=== PATIENT | male | born 1965 | race Caucasian/White ===

== ENCOUNTER 2024-08-06 08:32 | Emergency (ER) | payer OTHER ==
[~2024-08-06] VITALS: Ht 172.7 cm; Wt 99.8 kg
[2024-08-06] MEDS ORDERED: PENVK500 PO ×3 (09:59→10:11)
== END 2024-08-06 10:20 | disposition home or self-care (01) ==
LOC: ER 08:32
DX: K04.7 Periapical abscess without sinus (principal)
CPT/HCPCS: 99282

== ENCOUNTER 2024-09-27 16:55 | Emergency (ER) | payer OTHER ==
[~2024-09-27] VITALS: Ht 172.7 cm; Wt 108.9 kg
[~2024-09-27 16:55] MED LIST: PENVK500 PO
[2024-09-27] MEDS ORDERED: Amoxicillin/Clavulanate K 875 MG Tab PO ONE (17:50)
[2024-09-27] MEDS ORDERED: Ketorolac Tromethamine 15mg Vial IM ONE (17:50)
[2024-09-27] MEDS ORDERED: AMOCLA875 PO (17:54)
== END 2024-09-27 18:19 | disposition home or self-care (01) ==
LOC: ER 16:55
DX: K08.89 Other specified disorders of teeth and supporting structures (principal)
CPT/HCPCS: 96372; 99282-25; A9270; J1885

== ENCOUNTER → 2024-10-27 | Outpatient (CLI) | payer OTHER ==
[~2024-10-27] MED LIST changes: +AMOCLA875 PO
[2024-10-27 14:26] LABS: Hemoglobin 15.7 g/dL (13.5-17.5); Mean Corpuscular HGB 29.3 pg (26.0-34.0); Mean Corpuscular HGB Conc 34.9 g/dL (31.5-36.5); Mean Corpuscular Volume 84 fL (80-100); Mean Platelet Volume 9.2 fL (9.1-12.4); Platelet Count 240 K/mm3 (150-400); RDW Coefficient Variation 12.1 % (11.7-14.2); RDW Standard Deviation 36.5 fL (35.1-46.3); Red Blood Cell Count 5.35 M/mm3 (4.30-5.90); White Blood Cell Count 6.08 K/mm3 (4.00-11.30)
[2024-10-27 14:35] LABS: Albumin, Blood 3.9 g/dL (3.4-5.0); Albumin/Globulin Ratio 1.1 (0.8-1.8); Bilirubin, Total 0.4 mg/dL (0.1-1.0); Bun/Creatinine Ratio 13.4 (12.0-20.0); Calcium, Blood 8.9 mg/dL (8.5-10.1); Creatinine, Blood 0.75 mg/dL (0.60-1.20); Globulin, Blood 3.7 g/dL (2.2-4.0); Phosphorus, Blood 3.5 mg/dL (2.5-4.9); Potassium, Blood 3.4 mmol/L (3.5-5.5); Total Protein, Blood 7.6 g/dL (6.4-8.2)
[2024-10-27 14:59] LABS: BASOPHILS ABSOLUTE MAN 0.06 K/mm3 (0.00-0.23); BASOPHILS PERCENT MAN 1 % (0-2); EOSINOPHILS PERCENT MAN 0 % (0-6); LYMPHOCYTES PERCENT MAN 28 % (21-46); MONOCYTES ABSOLUTE MAN 0.54 K/mm3 (0.16-1.47); MONOCYTES PERCENT MAN 9 % (4-13); NEUTROPHILS ABSOLUTE MAN 3.76 K/mm3 (1.96-9.15); SEG NEUTROPHILS PERCENT MAN 62 % (41-73); TOTAL CELLS COUNTED 100
== END | disposition home or self-care (01) ==
LOC: LAB SHORT 13:08 → LAB 13:08
PROVIDERS: Nurse Practitioner
DX: I10 Essential (primary) hypertension (principal)
CPT/HCPCS: 80053; 83880; 84100; 85007; 85027